=== PATIENT | female | born 2000 | race Hispanic/Latino ===

== ENCOUNTER 2022-09-08 18:24 | Emergency (ER) | payer SELFPAY ==
[~2022-09-08] VITALS: Ht 162.6 cm; Wt 91.7 kg
[2022-09-08] MEDS ORDERED: ONDA4TAB6 PO (20:24)
[2022-09-08] MEDS ORDERED: ONDANSETRON 4MG ORAL DISINTEGRATING TAB PO ONE (20:25)
[2022-09-08 20:38] VITALS: BP 133/75
== END 2022-09-08 20:52 | disposition home or self-care (01) ==
LOC: M ED 18:24
DX: B34.9 Viral infection, unspecified (principal)